=== PATIENT | female | born 1955 | race Caucasian/White ===

== ENCOUNTER → 2020-12-01 10:00 | Outpatient (BNVA) | payer OTHER, SELFPAY | PROVIDERS: Family Provider Internal Medicine; PCP Internal Medicine; Visit Provider Internal Medicine | DX: E03.9 Hypothyroidism, unspecified (principal) | CPT/HCPCS: 84443 ==

== ENCOUNTER → 2021-05-11 15:32 | Outpatient (BNVA) | payer OTHER, SELFPAY | PROVIDERS: Family Provider Internal Medicine; PCP Internal Medicine; Visit Provider Internal Medicine | DX: E03.9 Hypothyroidism, unspecified (principal); Z72.0 Tobacco use | CPT/HCPCS: 80053; 80061; 83036; 84443 ==

== ENCOUNTER → 2022-01-10 14:01 | Outpatient (BNVA) | payer OTHER, SELFPAY | PROVIDERS: Family Provider Internal Medicine; PCP Internal Medicine; Visit Provider Internal Medicine | DX: Z72.0 Tobacco use (principal); E03.9 Hypothyroidism, unspecified; F34.1 Dysthymic disorder | CPT/HCPCS: 84443 ==

== ENCOUNTER 2022-09-08 12:22 | Outpatient (CLI) | payer MEDICARE, OTHER, SELFPAY ==
--- NOTE | 2022-09-08 | MR_ITS ---
WS: [id number] MRI HEAD WITHOUT CONTRAST TECHNIQUE: Sagittal T1, T2 axial, T2 axial FLAIR, axial and coronal T1 images, axial susceptibility w eighted imaging, axial diffusion weighted images, and coronal T2 images were obtained. CLINICAL INFORMATION: DYSPHAGIA COMPARISON: None. FINDINGS: Complex cystic and solid partially restricted ovoid mass in the LEFT parietal lobe extending into the superior posterior temporal lobe. Associated mass effect on the posterior horn LEFT lateral ventricl e and adjacent occipital horn. No midline shift. Mild surrounding edema. Complex lesion demonstrates increased T1 signal with hemosiderin compatible with subacute and chronic blood products. Normal posterior fossa. Normal vascular flow voids at the skull base. No extra-axial fluid collection s. Paranasal sinuses are well aerated. Mild mucosal thickening in the LEFT greater than RIGHT mastoid air cells. Normal posterior nasopharynx. Normal parapharyngeal fat. Mild small vessel changes. Mild parenchymal volume loss. Normal optic chiasm and pituitary infundibul um. Temporal lobes and hippocampal formations are normal in appearance. MR/MR head wo con* [id number] IMPRESSION: 1. Complex ovoid mass in the LEFT posterior parietal lobe extending into the s uperotemporal lobe measuring 3.4 x 3.2 x 3.7 cm. This demonstrates evidence of subacute and chronic blood products. Findings suspicious for hemorrhagic mass a nd consider metastatic disease in a patient this age. Intracranial abscess with complex debris is an additional less likely consideration. Gadolinium was not administered. Patient could not tolerate further imaging at the time. 2. Mild surrounding edema. Mass effect on the adjacent brain parenchyma and po sterior horn LEFT lateral ventricle as well as the occipital horn. No midline s hift or hydrocephalus. 3. Mild small vessel changes with mild parenchymal volume loss. Discussed with Dr CRUZ at 09/08/2022 1:34 PM. Patient transferred to the ER for further evaluation.
== END 2022-09-08 12:23 | disposition home or self-care (01) ==
PROVIDERS: Family Provider Internal Medicine; PCP Internal Medicine; Visit Provider Internal Medicine Cardiovascular Disease
DX: R13.10 Dysphagia, unspecified (principal); R60.0 Localized edema
CPT/HCPCS: 70551

== ENCOUNTER 2022-09-08 13:48 | Emergency (ER) | payer MEDICARE, OTHER, SELFPAY ==
[2022-09-08 13:51] VITALS: BP 156/96; PULSE 90; RESP 16; TEMP 36.8; O2SAT 98; BMI 27.1
[2022-09-08 14:56] LABS: Basophils % 0.5 %; Eosinophils # 0.1 10^3/uL (0.0-0.8); Eosinophils % 1.2 %; Hematocrit 42.9 % (37.0-47.0); Hemoglobin 14.1 g/dL (11.5-15.3); Lymphocytes # 2.7 10^3/uL (0.8-4.8); Lymphocytes % 36.1 %; Mean Corpuscular HGB Conc 32.9 g/dL (30.0-36.0); Mean Corpuscular Hemoglobin 30.7 pg (28.0-34.0); Mean Corpuscular Volume 93.5 fl (81-99); Monocytes # 0.5 10^3/uL (0.2-0.9); Monocytes % 7.2 %; Neutrophils # 4.02 10^3/uL (1.8-7.7); Neutrophils % 54.6 %; Nucleated Red Blood Cells % 0 %; Platelet Count 296 10^3/cmm (130-400); Red Blood Count 4.59 10^6/uL (4.1-5.3); Red Cell Distribution Width 13.6 % (12.1-15.1); White Blood Count 7.4 10^3/uL (4.0-10.0)
[2022-09-08 15:15] LABS: Alanine Aminotransferase 13 U/L (0-33); Albumin Level 4.3 g/dL (3.5-5.2); Alkaline Phosphatase 96 U/L (35-105); Anion Gap 15.1 (5-19); Aspartate Amino Transferase 21 U/L (0-32); Blood Urea Nitrogen 13 mg/dL (8-23); Calcium 9.8 mg/dL (8.5-10.5); Carbon Dioxide 24 mmol/L (22-29); Chloride 101 mmol/L (98-107); Globulin 3.4 g/dL (1.3-4.6); Glomerular Filtration Rate 71.5 mL/min (90-130); Glucose 91 mg/dL (65-115); Osmolality Calculated 282 mOsm/kg (285-295); Potassium 4.1 mmol/L (3.5-5.1); Sodium 136 mmol/L (136-145); Total Bilirubin 0.3 mg/dL (0.15-1.2); Total Protein 7.7 g/dL (6.6-8.7)
--- NOTE | 2022-09-08 16:23 | PC.NURSE ---
called for pt in waiting room to take her to a room. no answer. pt not in waiting room
--- NOTE | 2022-09-08 16:56 | PC.NURSE ---
pt not in waiting room
== END 2022-09-08 14:23 | disposition left against medical advice (07) ==
PROVIDERS: Emergency Medicine; Emergency Provider Family Medicine; PCP Internal Medicine
DX: Z53.21 Procedure and treatment not carried out due to patient leaving prior to being seen by health care provider (principal)
CPT/HCPCS: 36415; 80053; 85025; 87040